=== PATIENT | male | born 1970 | race Caucasian/White ===

== ENCOUNTER 2016-08-26 21:47 | Emergency (ER) | payer SELFPAY ==
[2016-08-26 22:04] VITALS: BP 122/64; PULSE 88; TEMP 99; BMI 23.0
--- NOTE | 2016-08-26 23:47 | PDOC ---
History of Present Illness - General History Source: Patient Exam Limitations: No Limitations - History of Present Illness Initial Comments: CHIEF COMPLAINT: 46 y/o afebrile male with no significant PMH c/o nausea and body aches for the past 1.5 weeks. HISTORY OF PRESENT ILLNESS: He admits he had a fever yesterday and he took a medicine he doesn't remember the name of. He denies earache, cough, sore throat , vomiting, diarrhea, CP, SOB, decrease in PO intake. Vital signs on arrival are within normal limits. REVIEW OF SYSTEMS: GENERAL/CONSTITUTIONAL: Subjective fever/chills. No weakness. No weight change. HEAD, EYES, EARS, NOSE AND THROAT: No change in vision. No ear pain or discharge. No sore throat. CARDIOVASCULAR: No chest pain or shortness of breath. RESPIRATORY: No cough, wheezing, or hemoptysis. GASTROINTESTINAL: +nausea. No vomiting, diarrhea, abd pain. GENITOURINARY: No dysuria, frequency, or change in urination. MUSCULOSKELETAL: No joint or muscle swelling or pain. No neck or back pain. SKIN: No rash or easy bruising. NEUROLOGIC: No headache, vertigo, loss of consciousness, or loss of sensation. PHYSICAL EXAM: GENERAL: The patient is awake, alert, and fully oriented, in no acute distress. He is ambulatory and well appearing. HEAD: Normal with no signs of trauma. ENT: Pupils equal, round and reactive to light, extraocular movements intact, sclera anicteric, conjunctiva clear. Neck supple. mucous membranes moist. No tonsilar erythema or exudate. LUNGS: Clear to auscultation bilaterally. Normal excursion. No respiratory distress or use of accessory muscles. CV: RRR, S1/S2, no MRG. Cap refill < 2 sec. ABDOMEN: Soft, non-distended, minimal TTP of epigastric region. Normal BS x 4. EXTREMITIES: Normal range of motion, no edema. NEUROLOGICAL: Normal speech, normal gait. CN II-XII grossly intact. PSYCH: Normal mood, normal affect. SKIN: Warm, dry, normal turgor, no rashes or lesions noted. <Ariella Ritchie - Last Filed: 08/27/16 01:55> <Roberto Boogie - Last Filed: 08/27/16 06:57> - General Chief Complaint: Cold Symptoms Stated Complaint: RT ARM PAIN/NUMB/NAUSEA/BOTH LEGS CRAMPS/HEADACHE Time Seen by Provider: 08/26/16 23:13 Past History - Immunization History Immunization Up to Date: Yes - Psycho/Social/Smoking Cessation Hx Anxiety: No Suicidal Ideation: No Smoking History: Never smoked Have you smoked in the past 12 months: Yes Hx Alcohol Use: No <Ariella Ritchie - Last Filed: 08/27/16 01:55> <Roberto Boogie - Last Filed: 08/27/16 06:57> - Past Medical History Allergies/Adverse Reactions: Allergies Allergy/AdvReac Type Severity Reaction Status Date / Time No Known Allergies Allergy Verified 08/26/16 21:54 Home Medications: Ambulatory Orders Ondansetron [Zofran Odt -] 4 mg SL TID #8 od.tablet 08/27/16 *Physical Exam - Vital Signs Last Vital Signs Temp Pulse Resp BP Pulse Ox 99 F 88 16 122/64 99 08/26/16 21:55 08/26/16 21:55 08/26/16 21:55 08/26/16 21:55 08/26/16 21:55 <Ariella Ritchie - Last Filed: 08/27/16 01:55> - Vital Signs Last Vital Signs Temp Pulse Resp BP Pulse Ox 99 F 88 16 122/64 99 08/26/16 21:55 08/26/16 21:55 08/26/16 21:55 08/26/16 21:55 08/26/16 21:55 <Roberto Boogie - Last Filed: 08/27/16 06:57> ED Treatment Course - LABORATORY CBC & Chemistry Diagram: 08/27/16 00:14 08/27/16 00:14 <Ariella Ritchie - Last Filed: 08/27/16 01:55> - LABORATORY CBC & Chemistry Diagram: 08/27/16 00:14 08/27/16 00:14 - ADDITIONAL ORDERS Additional order review: Laboratory Results 08/27/16 00:14 Sodium 144 Potassium 4.1 Chloride 106 Carbon Dioxide 30 Anion Gap 8 BUN 16 Creatinine 1.2 Creat Clearance w eGFR > 60 Random Glucose 87 Calcium 8.2 L Magnesium 2.1 Total Bilirubin 0.4 D AST 25 ALT 32 Alkaline Phosphatase 99 D Total Protein 6.7 Albumin 3.5 03/28/17 01:32 Influenza Types A,B Antigen (PATRICIA) - Final Nasopharyngeal Swab - Final 08/27/16 00:14 RBC 4.34 MCV 91.9 MCHC 33.6 RDW 13.6 MPV 6.7 L Neutrophils % 54.6 Lymphocytes % 27.1 Monocytes % 9.9 Eosinophils % 7.4 H Basophils % 1.0 - Medications Given in the ED: ED Medications Discontinued Medications Generic Name Dose Route Start Last Admin Trade Name Nellie PRN Reason Stop Dose Admin Sodium Chloride 1,000 mls @ 1,000 mls/hr 08/26/16 23:48 08/27/16 00:29 Normal Saline - IV 08/27/16 00:47 1,000 mls/hr ASDIR STA Administration Famotidine/Sodium Chloride 50 mls @ 100 mls/hr 08/26/16 23:49 08/27/16 00:29 Pepcid 20 Mg Premixed Ivpb - IVPB 08/27/16 00:18 100 mls/hr ONCE ONE Administration Ondansetron HCl 4 mg 08/26/16 23:48 08/27/16 00:29 Zofran Injection IVPUSH 08/26/16 23:49 4 mg ONCE ONE Administration <Roberto Boogie - Last Filed: 08/27/16 06:57> Medical Decision Making - Medical Decision Making A/P: 46 y/o afebrile male with nausea x 1.5 weeks and body aches. Plan is as follows: 1. labs 2. Influenza 3. UA 4. IV fluids 5. IV zofran 6. IV pepcid Labs unremarkable. The patient states he feels better. Will discharge to home with rx for zofran. Suggested he drink plenty of fluids and f/u with Dr. Mandel within 1 week. Instructed him to return to the ER with any worsening or concerning sympotoms. The patient verbalizes understanding of all instructions, has no further questions and is awaiting discharge. <Ariella Ritchie - Last Filed: 08/27/16 01:55> - Medical Decision Making 08/27/16 06:57 ED ATTENDING NOTE: I was available for consultation and review of the case and plan as needed. <Roberto Boogie - Last Filed: 08/27/16 06:57> *DC/Admit/Observation/Transfer <Ariella Ritchie - Last Filed: 08/27/16 01:55> <[place] - Last Filed: 08/27/16 06:57> Diagnosis at time of Disposition: Nausea - Discharge Dispostion Disposition: HOME Condition at time of disposition: Improved - Prescriptions Prescriptions: Ondansetron [Zofran Odt -] 4 mg SL TID #8 od.tablet - Referrals Referrals: Trey Mandel MD [Staff Physician] - 1 week - Patient Instructions Printed Discharge Instructions: DI for Nausea -- Adult Additional Instructions: Discharge Instructions: -Take zofran if needed for nausea/vomiting as prescribed -Follow up with Dr. mandel within 1 week -Return to the ER with any worsening or concerning symptoms
[2016-08-26] MEDS ORDERED: SODIUM CHLORIDE 1,000 ML IV STA (23:48)
[2016-08-26] MEDS ORDERED: ONDANSETRON 4 MG/2 ML VIAL IVPUSH ONE (23:48)
[2016-08-26] MEDS ORDERED: FAMOTIDINE 20 MG/50 ML IVPB 50 ML IVPB ONE (23:49)
[2016-08-27] MEDS ORDERED: ONDANSETRON 4 MG/2 ML VIAL ONE (00:19)
[2016-08-27] MEDS ORDERED: FAMOTIDINE 20 MG/50 ML IVPB 50 ML IVPB ONE (00:19)
[2016-08-27 00:51] LABS: EOSINOPHIL 7.4 % (0-4.5); MCH 30.9 pg (25.7-33.7); MCHC 33.6 g/dl (32.0-35.9); MEAN CELL VOLUME 91.9 fl (80-96); MEAN PLT VOLUME 6.7 fl (7.5-11.1); NEUTROPHILS 54.6 % (42.8-82.8); PLATELET COUNT 220 K/MM3 (134-434); RDW 13.6 % (11.9-15.9); WHITE BLOOD COUNT 5.8 K/mm3 (4.0-10.0)
[2016-08-27 01:16] LABS: ALBUMIN 3.5 g/dl (3.4-5.0); ANION GAP 8 (8-16); BILIRUBIN,TOTAL 0.4 mg/dL (0.2-1.0); CALCIUM 8.2 mg/dL (8.5-10.1); CO2 30 mmol/L (21-32); CREATININE 1.2 mg/dL (0.7-1.3); GLUCOSE,RANDOM 87 mg/dL (74-106); MAGNESIUM 2.1 mg/dL (1.8-2.4); SGOT/AST 25 U/L (15-37); SGPT/ALT 32 U/L (12-78); TOT PROT 6.7 g/dl (6.4-8.2)
[2016-08-27 01:17] LABS: ALK PHOS 99 U/L (45-117)
== END 2016-08-27 02:06 | disposition home or self-care (01) ==
LOC: JER 21:47
PROC: 3E033GC Introduction of Other Therapeutic Substance into Peripheral Vein, Percutaneous Approach (ICD-10-PCS; principal; 2016-08-26)
DX: R11.0 Nausea (principal)
CPT/HCPCS: 36415; 80053; 83735; 85025; 87804; 99282-25

== ENCOUNTER 2019-06-07 10:36 | Emergency (ER) | payer SELFPAY ==
[2019-06-07 10:42] VITALS: BMI 23.4
[2019-06-07] MEDS ORDERED: MAG HYDROX/AL HYDROX/SIMETH 30 ML UNIT-DOSE CUP PO ONE (11:06)
[2019-06-07] MEDS ORDERED: HYOSCYAMINE SULFATE 0.125 MG *ODT PO ONE (11:06)
[2019-06-07] MEDS ORDERED: LIDOCAINE VISCOUS 2% ORAL/TOP 20 ML UNIT-DOSE CUP MM ONE (11:07)
[2019-06-07] MEDS ORDERED: ESCITALOPRAM OXALATE 10 MG TABLET (FP) ONE (11:14)
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
[2019-06-07] MEDS ORDERED: LIDOCAINE VISCOUS 2% ORAL/TOP 20 ML UNIT-DOSE CUP ONE (11:25)
[2019-06-07] MEDS ORDERED: MAG HYDROX/AL HYDROX/SIMETH 30 ML UNIT-DOSE CUP ONE (11:25)
[2019-06-07 11:38] LABS: BASO % 1.3 % (0-2.0); EOS % 6.9 % (0-4.5); HEMATOCRIT 41.6 % (35.4-49); HEMOGLOBIN 14.2 GM/dL (11.7-16.9); LYMPH % 32.9 % (8-40); MCH 30.7 pg (25.7-33.7); MCHC 34.1 g/dl (32.0-35.9); MEAN CELL VOLUME 90.2 fl (80-96); MEAN PLT VOLUME 6.8 fl (7.5-11.1); MONO % 7.7 % (3.8-10.2); NEUT % 51.2 % (42.8-82.8); PLATELET COUNT 236 K/MM3 (134-434); RBC 4.62 M/mm3 (4.00-5.60); RDW 13.4 % (11.9-15.9); WHITE BLOOD COUNT 5.4 K/mm3 (4.0-10.0)
[2019-06-07 12:14] LABS: ALBUMIN 3.8 g/dl (3.4-5.0); BILIRUBIN,TOTAL 0.6 mg/dL (0.2-1); BLOOD UREA NITROGEN 18.2 mg/dL (7-18); CALCIUM 8.6 mg/dL (8.5-10.1); CREATININE 1.2 mg/dL (0.55-1.3); TOT PROT 7.4 g/dl (6.4-8.2)
[2019-06-07 12:58] VITALS: BP 97/63; PULSE 54; TEMP 98
== END 2019-06-07 13:00 | disposition home or self-care (01) ==
LOC: JER 10:36
DX: R10.13 Epigastric pain (principal); Z87.19 Personal history of other diseases of the digestive system
CPT/HCPCS: 36415; 80053; 83690; 85025; 99282-25